=== PATIENT | female | born 1995 | race Caucasian/White ===

== ENCOUNTER 2019-06-17 06:22 | Emergency (ER) | payer BC ==
[~2019-06-17] VITALS: Ht 157.5 cm; Wt 98.0 kg
[2019-06-17 06:27] VITALS: Ht 157.5 cm; Wt 98.0 kg
[2019-06-17] MEDS ORDERED: TYLENOL #4 W/CO1 TAB PO (07:28)
[2019-06-17 07:52] VITALS: BP 112/68
== END 2019-06-17 07:53 | disposition home or self-care (01) ==
LOC: D.ER 06:22
DX: J11.1 Influenza due to unidentified influenza virus with other respiratory manifestations (principal)

== ENCOUNTER 2019-07-26 19:44 | Emergency (ER) | payer BC ==
[~2019-07-26] VITALS: Ht 157.5 cm; Wt 97.7 kg
[~2019-07-26 19:44] MED LIST: TYLENOL #4 W/CO1 TAB PO
[2019-07-26 19:50] VITALS: Ht 157.5 cm; Wt 97.7 kg
[2019-07-26] MEDS ORDERED: OMNICEF300 MG PO (20:06)
[2019-07-26] MEDS ORDERED: NASONEX NASAL S17 GM NS (20:06)
[2019-07-26 20:24] LABS: APPEARANCE CLEAR (CLEAR); BILIRUBIN NEGATIVE (NEGATIVE); COLOR YELLOW (YELLOW); EPITHELIAL CELLS 0-5 /hpf (0-5); GLUCOSE NEGATIVE (NEGATIVE); KETONE MODERATE mg/dL (NEGATIVE); NITRITE NEGATIVE (NEGATIVE); PROTEIN NEGATIVE (NEGATIVE); SPECIFIC GRAVITY 1.015 (1.005-1.020); UROBILINOGEN NORMAL (NORMAL); WHITE CELLS - URINE RARE /hpf (NEGATIVE)
[2019-07-26 20:25] LABS: HCG URINE NEGATIVE (NEGATIVE)
[2019-07-26 20:54] VITALS: BP 139/73
== END 2019-07-26 20:54 | disposition home or self-care (01) ==
LOC: D.ER 19:44
PROVIDERS: Family Medicine
DX: J30.9 Allergic rhinitis, unspecified (principal); H66.92 Otitis media, unspecified, left ear

== ENCOUNTER 2019-09-28 13:57 | Emergency (ER) | payer BC ==
[~2019-09-28] VITALS: Ht 157.5 cm; Wt 98.2 kg
[~2019-09-28 13:57] MED LIST changes: +NASONEX NASAL S17 GM NS; +OMNICEF300 MG PO
[2019-09-28 14:18] VITALS: BP 124/83; Ht 157.5 cm; Wt 98.2 kg
[2019-09-28 15:25] LABS: BILIRUBIN NEGATIVE (NEGATIVE); GLUCOSE NEGATIVE (NEGATIVE); KETONE NEGATIVE (NEGATIVE); NITRITE NEGATIVE (NEGATIVE); UROBILINOGEN NORMAL (NORMAL)
[2019-09-28 15:26] LABS: BACTERIA FEW /hpf (NEGATIVE); RED CELLS - URINE >50 /hpf (0-5); WHITE CELLS - URINE 0-5 /hpf (NEGATIVE)
[2019-09-28 15:40] LABS: BASOPHILS 0.1 % (0-2); EOSINOPHILS 1.5 % (0-7); HEMATOCRIT 37.4 % (36.0-48.0); HEMOGLOBIN 12.4 g/dL (12-16); IMMATURE GRANULOCYTES 0.3 % (0-5); LYMPHOCYTES 25.3 % (15-50); MCH 29.4 pg (26.0-34.0); MCHC 33.2 g/dL (31.0-37.0); MCV 88.6 fL (80.0-100.0); MEAN PLATELET VOLUME 10.2 fL (7.4-10.4); MONOCYTES 7.4 % (2-11); NEUTROPHILS 65.4 % (40-80); PLATELET COUNT 361 10x3/uL (130-400); RBC 4.22 10x6/uL (4.00-5.40); RDW 12.6 % (11.5-14.5); WBC 7.8 10x3/uL (4.8-10.8)
[2019-09-28 15:50] LABS: HCG SERUM NEGATIVE (NEGATIVE)
[2019-09-28 15:53] LABS: CALC OSMOLALITY 275 mosm/kg (275-300); CALCIUM 9.2 mg/dL (8.5-10.1); CARBON DIOXIDE 25.4 mmol/L (21.0-32.0); CHLORIDE - SERUM 105 mmol/L (98-107); CREATININE - SERUM 0.6 mg/dL (0.6-1.3); GLUCOSE 100 mg/dL (74-106); POTASSIUM - SERUM 4.1 mmol/L (3.5-5.1); SODIUM 138 mmol/L (136-145); UREA NITROGEN 12 mg/dL (7-18); eGFR NON AFRICAN AMERICAN > 90 mL/min (90-120)
[2019-09-28 15:55] LABS: ALBUMIN 4.2 g/dL (3.4-5.0); ALKALINE PHOSPHATASE 75 U/L (30-120); ALT (SGPT) 22 U/L (10-68); BILIRUBIN - TOTAL 0.57 mg/dL (0.2-1.3); PROTEIN - SERUM 7.8 g/dL (6.4-8.2)
== END 2019-09-28 18:20 | disposition home or self-care (01) ==
LOC: D.ER 13:57
PROVIDERS: Family Medicine
DX: N93.9 Abnormal uterine and vaginal bleeding, unspecified (principal)

== ENCOUNTER 2019-10-23 15:37 | Emergency (ER) | payer BC ==
[~2019-10-23] VITALS: Ht 157.5 cm; Wt 100.0 kg
[2019-10-23 15:49] VITALS: Ht 157.5 cm; Wt 100.0 kg
[2019-10-23 16:17] LABS: BILIRUBIN NEGATIVE (NEGATIVE); GLUCOSE NEGATIVE (NEGATIVE); HCG URINE NEGATIVE (NEGATIVE); KETONE NEGATIVE (NEGATIVE); NITRITE NEGATIVE (NEGATIVE); SPECIFIC GRAVITY 1.015 (1.005-1.020); UROBILINOGEN NORMAL (NORMAL)
[2019-10-23 16:19] LABS: BACTERIA MANY /hpf (NEGATIVE); EPITHELIAL CELLS 0-5 /hpf (0-5); RED CELLS - URINE OCC /hpf (0-5); WHITE CELLS - URINE 0-5 /hpf (NEGATIVE)
[2019-10-23 16:48] LABS: BASOPHILS 0.4 % (0-2); HEMATOCRIT 38.6 % (36.0-48.0); HEMOGLOBIN 12.1 g/dL (12-16); IMMATURE GRANULOCYTES 0.4 % (0-5); LYMPHOCYTES 25.9 % (15-50); MCH 28.1 pg (26.0-34.0); MCHC 31.3 g/dL (31.0-37.0); MCV 89.6 fL (80.0-100.0); MEAN PLATELET VOLUME 10.6 fL (7.4-10.4); MONOCYTES 8.8 % (2-11); NEUTROPHILS 62.5 % (40-80); PLATELET COUNT 368 10x3/uL (130-400); RBC 4.31 10x6/uL (4.00-5.40); RDW 12.6 % (11.5-14.5); WBC 8.1 10x3/uL (4.8-10.8)
[2019-10-23 16:56] LABS: CALC OSMOLALITY 271 mosm/kg (275-300); CALCIUM 9.1 mg/dL (8.5-10.1); CARBON DIOXIDE 25.6 mmol/L (21.0-32.0); CHLORIDE - SERUM 102 mmol/L (98-107); CREATININE - SERUM 0.4 mg/dL (0.6-1.3); GLUCOSE 85 mg/dL (74-106); SODIUM 136 mmol/L (136-145); UREA NITROGEN 15 mg/dL (7-18); eGFR NON AFRICAN AMERICAN > 90 mL/min (90-120)
[2019-10-23 17:14] LABS: ALKALINE PHOSPHATASE 79 U/L (30-120); ALT (SGPT) 38 U/L (10-68); BILIRUBIN - TOTAL 0.74 mg/dL (0.2-1.3); FERRITIN 49 ng/mL (3-244); PROTEIN - SERUM 8.2 g/dL (6.4-8.2)
[2019-10-23 17:25] LABS: C-REACTIVE PROTEIN 1.1 mg/dL (0.0-0.9)
[2019-10-23 17:34] LABS: LIPASE 46 U/L (73-393)
[2019-10-23 17:57] LABS: AMYLASE - SERUM 29 U/L (25-115)
[2019-10-23 19:00] LABS: CALC OSMOLALITY 278 mosm/kg (275-300); CALCIUM 9.1 mg/dL (8.5-10.1); CARBON DIOXIDE 23.9 mmol/L (21.0-32.0); CHLORIDE - SERUM 105 mmol/L (98-107); GLUCOSE 80 mg/dL (74-106); SODIUM 140 mmol/L (136-145); UREA NITROGEN 15 mg/dL (7-18)
[2019-10-23 19:01] LABS: CREATININE - SERUM 0.7 mg/dL (0.6-1.3); POTASSIUM - SERUM 3.6 mmol/L (3.5-5.1); eGFR NON AFRICAN AMERICAN > 90 mL/min (90-120)
[2019-10-23 19:05] LABS: ALBUMIN 4.2 g/dL (3.4-5.0); ALKALINE PHOSPHATASE 86 U/L (30-120); ALT (SGPT) 36 U/L (10-68); BILIRUBIN - TOTAL 0.53 mg/dL (0.2-1.3); PROTEIN - SERUM 8.3 g/dL (6.4-8.2)
[2019-10-23 19:38] VITALS: BP 118/67
== END 2019-10-23 19:38 | disposition home or self-care (01) ==
LOC: D.ER 15:37
PROVIDERS: Family Medicine
DX: R10.9 Unspecified abdominal pain (principal)

== ENCOUNTER 2020-02-29 00:39 | Emergency (ER) | payer BC ==
[~2020-02-29] VITALS: Ht 157.5 cm; Wt 102.7 kg
[2020-02-29 00:51] VITALS: Ht 157.5 cm; Wt 102.7 kg
[2020-02-29 01:20] LABS: HCG URINE NEGATIVE (NEGATIVE)
[2020-02-29 01:23] LABS: UDS - AMPHET NEGATIVE QUAL (NEGATIVE); UDS - BARB NEGATIVE QUAL (NEGATIVE); UDS - BENZO NEGATIVE QUAL (NEGATIVE); UDS - COCAINE NEGATIVE QUAL (NEGATIVE); UDS - OPIATE NEGATIVE QUAL (NEGATIVE); UDS - PCP NEGATIVE QUAL (NEGATIVE); UDS - THC POSITIVE QUAL (NEGATIVE)
[2020-02-29 01:26] LABS: BASOPHILS 0.2 % (0-2); EOSINOPHILS 2.4 % (0-7); HEMATOCRIT 37.4 % (36.0-48.0); IMMATURE GRANULOCYTES 0.2 % (0-5); LYMPHOCYTES 29.9 % (15-50); MCH 27.4 pg (26.0-34.0); MCHC 32.1 g/dL (31.0-37.0); MCV 85.4 fL (80.0-100.0); MEAN PLATELET VOLUME 9.7 fL (7.4-10.4); MONOCYTES 8.4 % (2-11); NEUTROPHILS 58.9 % (40-80); PLATELET COUNT 377 10x3/uL (130-400); RBC 4.38 10x6/uL (4.00-5.40); RDW 13.9 % (11.5-14.5); WBC 9.2 10x3/uL (4.8-10.8)
[2020-02-29 01:26] LABS: BILIRUBIN NEGATIVE (NEGATIVE); GLUCOSE NEGATIVE (NEGATIVE); KETONE NEGATIVE (NEGATIVE); NITRITE NEGATIVE (NEGATIVE); UROBILINOGEN NORMAL (NORMAL)
[2020-02-29 01:28] LABS: BACTERIA MODERATE /hpf (NEGATIVE); CALCIUM OXALATE CRYSTALS 0-5 /hpf (NONE SEEN); EPITHELIAL CELLS 0-5 /hpf (0-5); RED CELLS - URINE 0-5 /hpf (0-5); WHITE CELLS - URINE 0-5 /hpf (NEGATIVE)
[2020-02-29 01:31] LABS: CALC OSMOLALITY 277 mosm/kg (275-300); CALCIUM 9.2 mg/dL (8.5-10.1); CARBON DIOXIDE 25.9 mmol/L (21.0-32.0); CHLORIDE - SERUM 103 mmol/L (98-107); CREATININE - SERUM 0.8 mg/dL (0.6-1.3); GLUCOSE 100 mg/dL (74-106); POTASSIUM - SERUM 3.5 mmol/L (3.5-5.1); SODIUM 139 mmol/L (136-145); UREA NITROGEN 13 mg/dL (7-18); eGFR NON AFRICAN AMERICAN > 90 mL/min (90-120)
[2020-02-29 01:37] LABS: ALBUMIN 4.4 g/dL (3.4-5.0); ALKALINE PHOSPHATASE 87 U/L (30-120); ALT (SGPT) 24 U/L (10-68); BILIRUBIN - TOTAL 0.37 mg/dL (0.2-1.3); MAGNESIUM - SERUM 1.7 mg/dL (1.8-2.4); PROTEIN - SERUM 8.2 g/dL (6.4-8.2)
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
[2020-02-29 05:02] VITALS: BP 132/78
== END 2020-02-29 05:03 ==
LOC: D.ER 00:39
PROVIDERS: Emergency Medicine
DX: F43.20 Adjustment disorder, unspecified (principal); R45.851 Suicidal ideations; F41.8 Other specified anxiety disorders; F41.0 Panic disorder [episodic paroxysmal anxiety]

== ENCOUNTER 2020-04-23 00:40 | Emergency (ER) | payer BC ==
[~2020-04-23] VITALS: Ht 157.5 cm; Wt 102.7 kg
[2020-04-23 00:46] VITALS: Ht 157.5 cm; Wt 102.7 kg
[2020-04-23] MEDS ORDERED: ZOLOFT25 MG PO (01:01)
[2020-04-23] MEDS ORDERED: VISTARIL50 MG PO (01:01)
[2020-04-23] MEDS ORDERED: STERAPRED 5MG 65 M1 PO (01:16)
[2020-04-23] MEDS ORDERED: AUGMENTIN 875-11 TAB PO (01:16)
[2020-04-23 01:40] VITALS: BP 136/83
== END 2020-04-23 01:40 | disposition home or self-care (01) ==
LOC: D.ER 00:40
DX: J32.0 Chronic maxillary sinusitis (principal)

== ENCOUNTER 2020-11-17 17:20 | Emergency (ER) | payer BC ==
[~2020-11-17] VITALS: Ht 157.5 cm; Wt 104.5 kg
[~2020-11-17 17:20] MED LIST changes: +AUGMENTIN 875-11 TAB PO; +BUSPAR5 MG PO; +CHRONULAC30 ML PO; +FLAGYL500 MG PO; +FLUTICASONE PRO16 GM NASAL; +MINIPRESS1 MG PO; +NAPROSYN500 MG PO; +STERAPRED 5MG 65 M1 PO; +TESSALON PERLE100 MG PO; +VISTARIL50 MG PO; +ZITHROMAX TRI-500 MG PO; +ZOLOFT100 MG PO; +ZOLOFT25 MG PO
[2020-11-17 17:28] VITALS: Ht 157.5 cm; Wt 104.5 kg
[2020-11-17] MEDS ORDERED: CLARITIN 10 MG10 MG PO (18:56)
[2020-11-17] MEDS ORDERED: STERAPRED 5MG 65 M1 PO (18:56)
[2020-11-17] MEDS ORDERED: PROAIR HFA8.5 G1 INH (18:56)
[2020-11-17 20:19] VITALS: BP 137/84
== END 2020-11-17 20:19 | disposition home or self-care (01) ==
LOC: D.ER 17:20
DX: J45.909 Unspecified asthma, uncomplicated (principal); Z72.0 Tobacco use; R06.02 Shortness of breath

== ENCOUNTER 2020-12-20 06:41 | Emergency (ER) | payer BC ==
[~2020-12-20] VITALS: Ht 157.5 cm; Wt 99.3 kg
[~2020-12-20 06:41] MED LIST changes: +CLARITIN 10 MG10 MG PO; +PROAIR HFA8.5 G1 INH
[2020-12-20 06:44] VITALS: BP 145/82; Ht 157.5 cm; Wt 99.3 kg
[2020-12-20] MEDS ORDERED: PROZAC20 MG PO (06:49)
[2020-12-20] MEDS ORDERED: MINIPRESS2 MG PO (06:50)
[2020-12-20 07:10] LABS: BASOPHILS 0.4 % (0-2); EOSINOPHILS 1.3 % (0-7); HEMATOCRIT 37.5 % (36.0-48.0); HEMOGLOBIN 12.2 g/dL (12-16); LYMPHOCYTES 10.7 % (15-50); MCH 28.2 pg (26.0-34.0); MCHC 32.6 g/dL (31.0-37.0); MCV 86.6 fL (80.0-100.0); MEAN PLATELET VOLUME 8.5 fL (7.4-10.4); MONOCYTES 11.6 % (2-11); RBC 4.33 10x6/uL (4.00-5.40); RDW 14.1 % (11.5-14.5); WBC 6.7 10x3/uL (4.8-10.8)
[2020-12-20 07:12] LABS: PLATELET COUNT 276 10x3/uL (130-400)
[2020-12-20 07:21] LABS: CALC OSMOLALITY 278 mosm/kg (275-300); CALCIUM 8.4 mg/dL (8.5-10.1); CARBON DIOXIDE 23.7 mmol/L (21.0-32.0); CHLORIDE - SERUM 106 mmol/L (98-107); CREATININE - SERUM 0.7 mg/dL (0.6-1.3); GLUCOSE 110 mg/dL (74-106); SODIUM 139 mmol/L (136-145); UREA NITROGEN 13 mg/dL (7-18); eGFR NON AFRICAN AMERICAN > 90 mL/min (90-120)
[2020-12-20 07:27] LABS: ALBUMIN 3.8 g/dL (3.4-5.0); ALKALINE PHOSPHATASE 65 U/L (30-120); ALT (SGPT) 21 U/L (10-68); BILIRUBIN - TOTAL 0.45 mg/dL (0.2-1.3); PROTEIN - SERUM 7.2 g/dL (6.4-8.2)
[2020-12-20] MEDS ORDERED: MEDROL DOSE PACK4 MG PO (07:43)
[2020-12-20] MEDS ORDERED: IPRATROPIUM BRO15 M1 NASAL (07:43)
[2020-12-20 07:58] LABS: INFLUENZA TYPE A NEGATIVE (NEGATIVE); INFLUENZA TYPE B NEGATIVE (NEGATIVE); SARS-CoV-2 ANTIGEN NEGATIVE- SARS-COV-2 (NEGATIVE)
== END 2020-12-20 08:37 | disposition home or self-care (01) ==
LOC: D.ER 06:41
PROVIDERS: Family Medicine
DX: J20.9 Acute bronchitis, unspecified (principal)